=== PATIENT | female | born 1990 | race Caucasian/White ===

== ENCOUNTER → 2023-12-31 13:13 | Outpatient (REF) | payer BC, SELFPAY | LOC: HWRAD 13:13 | PROVIDERS: ATTENDING PHYSICIAN Nurse Practitioner Adult Health | DX: R79.89 Other specified abnormal findings of blood chemistry (principal) | CPT/HCPCS: 76700 ==

== ENCOUNTER → 2024-10-27 07:15 | Outpatient (REF) | payer BC, SELFPAY | LOC: PNTC 07:15 | PROVIDERS: ATTENDING PHYSICIAN Obstetrics & Gynecology | DX: Z36.0 Encounter for antenatal screening for chromosomal anomalies (principal); Z36.82 Encounter for antenatal screening for nuchal translucency | CPT/HCPCS: 76801; 76813 ==

== ENCOUNTER → 2024-11-22 08:18 | Outpatient (REF) | payer BC, SELFPAY | LOC: PNTC 08:18 | PROVIDERS: ATTENDING PHYSICIAN Obstetrics & Gynecology | DX: O09.519 Supervision of elderly primigravida, unspecified trimester (principal) | CPT/HCPCS: 76805 ==

== ENCOUNTER → 2024-12-21 08:13 | Outpatient (REF) | payer BC, SELFPAY | LOC: PNTC 08:13 | PROVIDERS: ATTENDING PHYSICIAN Obstetrics & Gynecology | DX: O09.529 Supervision of elderly multigravida, unspecified trimester (principal); O09.819 Supervision of pregnancy resulting from assisted reproductive technology, unspecified trimester; O99.210 Obesity complicating pregnancy, unspecified trimester | CPT/HCPCS: 76811; 76817 ==

== ENCOUNTER 2025-01-12 14:07 | Observation (INO) | payer BC, SELFPAY ==
[2025-01-12 14:50] VITALS: BP 109/68; BMI 35.8
[2025-01-12 14:56] LABS: Hematocrit 37.5 % (37.0-47.0); Hemoglobin 12.8 g/dL (12.0-16.0); Mean Corp Hgb Conc. 34.1 g/dL (33.0-37.0); Mean Corpuscular Hgb 30.3 pg (27.0-31.0); Mean Corpuscular Volume 88.7 fL (81.0-99.0); Mean Platelet Volume 9.5 fL (7.4-10.4); Platelet Count 275 10^3/uL (130-400); Red Blood Cell Count 4.23 10^6/uL (4.20-5.40); Red Cell Dist. Width 12.4 % (11.5-14.5); White Blood Cell Count 12.7 10^3/uL (4.8-10.8)
[2025-01-12 15:01] VITALS: BP 109/68
[2025-01-12 15:02] LABS: INR 0.96; PT 13.3 Sec (11.4-14.6)
[2025-01-12 15:03] LABS: APTT 25.1 Sec (23.4-35.0); Fibrinogen 566 MG/DL (199-459)
== END 2025-01-13 14:27 | disposition home or self-care (01) ==
LOC: LDRP 14:07
PROVIDERS: ADMITTING PHYSICIAN Student in an Organized Health Care Education/Training Program
DX: O9A.212 Injury, poisoning and certain other consequences of external causes complicating pregnancy, second trimester (principal); S39.81XA Other specified injuries of abdomen, initial encounter; W01.0XXA Fall on same level from slipping, tripping and stumbling without subsequent striking against object, initial encounter; O32.1XX0 Maternal care for breech presentation, not applicable or unspecified; Z3A.23 23 weeks gestation of pregnancy; O26.612 Liver and biliary tract disorders in pregnancy, second trimester; K76.0 Fatty (change of) liver, not elsewhere classified; O09.512 Supervision of elderly primigravida, second trimester; O99.212 Obesity complicating pregnancy, second trimester
CPT/HCPCS: 59025; 76815; 85027; 85384; 85460; 85610; 85730; 86850; 86900; 86901; G0378

== ENCOUNTER → 2025-02-01 15:56 | Outpatient (REF) | payer BC, SELFPAY | LOC: PNTC 15:56 | PROVIDERS: ATTENDING PHYSICIAN Obstetrics & Gynecology | DX: O09.512 Supervision of elderly primigravida, second trimester (principal); O09.812 Supervision of pregnancy resulting from assisted reproductive technology, second trimester; O26.612 Liver and biliary tract disorders in pregnancy, second trimester; O99.213 Obesity complicating pregnancy, third trimester | CPT/HCPCS: 76816 ==

== ENCOUNTER → 2025-03-01 15:57 | Outpatient (REF) | payer BC, SELFPAY | LOC: PNTC 15:57 | PROVIDERS: ATTENDING PHYSICIAN Obstetrics & Gynecology | DX: O09.513 Supervision of elderly primigravida, third trimester (principal); O09.813 Supervision of pregnancy resulting from assisted reproductive technology, third trimester; O26.613 Liver and biliary tract disorders in pregnancy, third trimester; O99.213 Obesity complicating pregnancy, third trimester | CPT/HCPCS: 76816 ==

== ENCOUNTER → 2025-03-28 16:11 | Outpatient (REF) | payer BC, SELFPAY | LOC: PNTC 16:11 | PROVIDERS: ATTENDING PHYSICIAN Obstetrics & Gynecology | DX: O09.513 Supervision of elderly primigravida, third trimester (principal); O09.813 Supervision of pregnancy resulting from assisted reproductive technology, third trimester; O26.613 Liver and biliary tract disorders in pregnancy, third trimester; O99.213 Obesity complicating pregnancy, third trimester | CPT/HCPCS: 59025; 76816 ==

== ENCOUNTER → 2025-04-04 16:00 | Outpatient (REF) | payer BC, SELFPAY | LOC: PNTC 16:00 | PROVIDERS: ATTENDING PHYSICIAN Obstetrics & Gynecology | DX: O09.513 Supervision of elderly primigravida, third trimester (principal); O09.813 Supervision of pregnancy resulting from assisted reproductive technology, third trimester; O26.613 Liver and biliary tract disorders in pregnancy, third trimester; O99.213 Obesity complicating pregnancy, third trimester | CPT/HCPCS: 59025; 76815 ==

== ENCOUNTER 2025-04-09 05:56 | Inpatient (IN) | payer BC, SELFPAY ==
[2025-04-09 02:11] VITALS: BP 124/90
[2025-04-09 02:28] VITALS: BMI 38.7
--- NOTE | 2025-04-09 02:30 | EDRN ---
Pt having upper abdominal pain into her back, nausea and vomiting. Pt is 36 weeks G1A0P0. Symptoms started around [id number], pt was unable to get to sleep. Pt ate chicken tenders and crab fries for dinner. No hx gallbladder problems.
No surgeries. No fever/chills/cough, urinary symptoms, diarrhea/constipation. Pain also goes through chest. Pain constant. Pt took 1000mg tylenol around 0100.
[2025-04-09] MEDS: BENADRYL 12.5 MG IV (02:43)
[2025-04-09] MEDS: REGLAN 10 MG IV (02:47)
[2025-04-09 02:50] LABS: Hematocrit 36.4 % (37.0-47.0); Hemoglobin 12.7 g/dL (12.0-16.0); Mean Corp Hgb Conc. 34.9 g/dL (33.0-37.0); Mean Corpuscular Volume 86.1 fL (81.0-99.0); Nucleated Red Blood Cells % 0 %; Platelet Count 227 10^3/uL (130-400); Red Cell Dist. Width 12.6 % (11.5-14.5)
--- NOTE | 2025-04-09 02:58 | EDRN ---
Dr Batista offered pt morphine for pain which she declined. Pt aware waiting for US and if she changes her mind about pain medication to let staff know. Pt restless on stretcher, unable to find comfortable position.
[2025-04-09 03:05] LABS: ALT (SGPT) 14 U/L (0-35); AST (SGOT) 23 U/L (14-36); Albumin 3.6 g/dl (3.5-5.0); Alkaline Phosphatase 161 U/L (38-126); Blood Urea Nitrogen 6 mg/dl (7-17); Calcium 9.3 mg/dl (8.4-10.2); Carbon Dioxide 22 mmol/L (22-30); Chloride 111 mmol/L (98-107); Estimated Creatinine Clearance > 125 ml/min; Glucose 98 mg/dl (70-99); Lipase 264 U/L (23-300); Potassium 4.4 mmol/L (3.5-5.1); Sodium 137 mmol/L (135-145); Total Protein 6.4 g/dl (6.3-8.2); eGFR > 60.00
[2025-04-09 03:16] LABS: Troponin I < 0.012 ng/ml
[2025-04-09 04:31] VITALS: BP 123/80
--- NOTE | 2025-04-09 04:45 | ED.GENMED ---
History of Present Illness
General
Chief Complaint: Chest Pain
Source: patient
Time Seen by Provider: 04/09/25 02:41
Nursing documentation reviewed up to this point in time: agreed with
History of Present Illness
History of Present Illness:
Note:
CHIEF COMPLAINT(S)
Abdominal pain and discomfort primarily around the back.
HISTORY OF PRESENT ILLNESS
The patient is a 34-year-old female who presented with complaints of abdominal and back discomfort. The patient described symptoms as being around the back area and not overtly colicky or resembling contractions, which she equates with severe pain.
This discomfort has prompted her to seek medical attention. She reports a recent episode during which Tylenol (acetaminophen) was taken, 1000 mg at 1:00 AM, which currently precludes the administration of additional acetaminophen at this time. While
she has been suggested morphine as a pain management option, the patient expressed reluctance and declined the offer. She appears concerned about the safety of medications during . The plan includes proceeding with an ultrasound to evaluate
the gallbladder as a potential source of her discomfort.
ADDITIONAL HISTORY OBTAINED FROM SOURCES OTHER THAN THE PATIENT
No additional history from other sources was recorded.
PHYSICAL EXAM
General: Alert, moderate acute distress
Skin: Warm, dry.
Head: Normocephalic, atraumatic.
Neck: Supple, trachea midline.
Eye, Ears, Nose, and Throat: Oral mucosa moist.
Cardiovascular: Normal peripheral perfusion, No edema.
Respiratory: Respirations are non-labored.
Gastrointestinal: Abdomen nondistended. Right upper quadrant abdominal pain
Back: Normal range of motion, Normal alignment.
Musculoskeletal: Normal range of motion, normal strength.
Neurological: Alert and oriented to person, place, time, and situation, No focal neurological deficit observed.
Psychiatric: Cooperative, appropriate mood & affect.
PLAN
1. Conduct an abdominal ultrasound to evaluate the gallbladder.
2. Continue observation and manage pain with caution due to the patient�s ; revisit pain management options if necessary.
3. Avoid NSAIDs due to current conditions and recent acetaminophen use.
4. Encourage the patient to report any significant changes in symptoms, particularly those involving increased pain or new symptoms.
DIFFERENTIAL DIAGNOSIS
The Differential Diagnosis includes, in no particular order and is not limited to:
1. Cholecystitis
2. Gallstones
3. Biliary colic
4. Pancreatitis
5. Urinary tract infection
6. Pyelonephritis
7. Renal colic
8. Peptic ulcer disease
9. Musculoskeletal pain
10. labor or false labor (considered due to )
CARE-UPDATE
04/09/25 - 04:59
The patient continues to experience severe right lower quadrant abdominal pain and prefers to avoid narcotic pain medication. Due to persistent symptoms, the decision has been made to admit the patient to the hospital. Dr. Berrios has concurred
with the plan and will have the patient under her care.
Disposition:
SUMMARY OF ENCOUNTER
The patient, a 34-year-old female who is 36 weeks , presented with right upper quadrant abdominal pain. Due to the persistent nature of her symptoms, she has been diagnosed with cholelithiasis and biliary colic. Given her condition and
, the decision was made to admit her for further evaluation and management.
DISPOSITION
Admit
MANAGEMENT OF THE PATIENTS CARE WAS DISCUSSED WITH
The patients care was discussed with Dr. Berrios, who will take over her management upon admission.
PLAN
The patient is admitted to Dr. Castro service for further monitoring and testing, likely to include imaging and potential consultations with gastroenterology to better define the management plan.
DIAGNOSIS
- Cholelithiasis (ICD-10: K80.20)
- Biliary Colic (ICD-10: K80.40)
Phy Exam
Physical Exam
Physical Exam:
Right upper quadrant abdominal pain consistent with Solorio sign. No McBurney's point tenderness. Rapid uterus.
Scores
Heart Score for Chest Pain Patients
STEMI patient?: No
History: Slightly or Non-Suspicious
ECG: Normal
Age: </= 45 years
Risk Factors: No Risk Factors
Troponin: </= Normal Limit
Heart Score for Chest Pain Patients: 0
Heart Score Risk: 2.5% MACE over next 6 weeks
Course
Orders/Labs/Results
Orders:
Orders
04/09/25 02:15
EKG [Electrocardiogram (*1)] Urgent
Reason for Study: Chest Pain
EKG- Treatment ONCE
04/09/25 02:26
Cardiac Monitoring- Treatment ONCE
IV Insert/Care/Rem.- Treatment PRN
O2 Therapy [RESP] Urgent
Titrate/Wean O2 to maintain O2 sat greater than (%): 90
Special Instructions: Maintain sats >/=90%
Pulse Ox/spot Check [RESP] Urgent
Quantity: 1
Special Instructions: ON ROOM AIR
04/09/25 02:38
Complete Blood Count/With Diff Urgent
Comprehensive Metabolic Panel Urgent
Lipase Urgent
Troponin I Urgent
04/09/25 02:41
Diphenhydramine [Benadryl] 50 mg .ROUTE .STK-MED ONE
Metoclopramide [Reglan] 10 mg .ROUTE .STK-MED ONE
04/09/25 02:42
Diphenhydramine [Benadryl] 12.5 mg IV NOW STA
04/09/25 02:46
Metoclopramide [Reglan] 10 mg IV NOW STA
04/09/25 02:51
US Abdomen Complete/Upper Urgent
Comment:
Reason For Exam: ruq abd pain
04/09/25 05:24
Admit/Transfer Patient As Directed
Co-Sign Provider:
Level of Care: Inpatient admission
Assign to:: [facility]
Physician / Group: Roxanne Montoya
Diagnosis: Cholelithiasis
Reason for Hospitalization: IV medications? possible OR,
Expected length of stay greater than two midnights?: Yes
ELOS- Estimated Length of Stay in days: 2
I certify the patient meets the requirements for IP care: Yes
04/09/25 05:30
PRN Pain Medication Management As Directed
May give lesser potent ordered pain med per pt: Yes
preference::
Protocol:: Medication orders for pain may be administered in a
manner that supports deferring to patient preference
when the pt is:
- Requesting an ordered lesser potent pain medication.
Least to most potent pain medications are defined
as: acetaminophen < NSAID < tramadol < opioids
(morphine, oxycodone, hydromorphone).
- Requesting a lesser dose of the same medication IF
ORDERED.
- Requesting a less intrusive route of administration
if both routes are prescribed by the provider (PO <
IV).
04/09/25 05:32
Code Status As Directed
Resuscitation Status: Full Code
04/09/25 06:04
Acetaminophen [Tylenol] 650 mg PO Q6HPRN PRN
Abnormal Lab Results
04/09/25
02:38
Hct 36.4 L %
(37.0-47.0)
Abs Immat Gran (auto) 0.1 H 10^3/uL
(0-0.05)
Absolute Monos (auto) 0.9 H 10^3/uL
(0.1-0.6)
Immature Gran % 1.0 H %
(0-0.5)
Chloride 111 H mmol/L
(98-107)
BUN 6 L mg/dl
(7-17)
Alkaline Phosphatase 161 H U/L
(38-126)
04/09/25 02:38
04/09/25 02:38
Vital Signs
Initial and Last Documented VS:
Initial Vital Signs
Pulse Resp BP Pulse Ox
96 22 124/90 98
04/09/25 02:11 04/09/25 02:11 04/09/25 02:11 04/09/25 02:11
Last Documented Vital Signs
Temp Pulse Resp BP Pulse Ox
99.1 F 84 14 122/72 100
04/09/25 04:31 04/09/25 06:30 04/09/25 06:30 04/09/25 06:30 04/09/25 04:46
*Pulse Oximetry
SaO2: 100
Oxygen Mode of Delivery: Room air
Patient hypoxic: not evaluated
*Critical Care Note
Total Time (30-74mins, 75-104mins- exclusive of procedures): Not Applicable
Update Note
Update Note:
Preliminary Radiology Report
[facility], [facility] - Phone
[facility]
NAME: YASMIN MONTOYA
DATE OF EXAM: 04/09/2025
Patient No: [id number]
Physician: TYLER^Vicky
Date of : 1990
Past Medical History (entered by Technologist):
Reason For Exam (entered by Technologist): RUQ pain
Other Notes (entered by Technologist): 2 small mobile GB stones, fatty liver, nl CBD, mild left hydronephrosis. The patient is 36 weeks .
Additional Information (per [facility]): Right upper quadrant pain. 36 weeks
Ultrasound abdomen complete
IMPRESSION:
Cholelithiasis without secondary findings to suggest cholecystitis
Few small gallstones in gallbladder
No gallbladder wall thickening or pericholecystic fluid
Negative sonographic Solorio's sign per report
No bile duct dilation
Pancreas obscured by bowel gas
Liver appears normal
Right kidney is unremarkable
Trace left-sided hydronephrosis
Spleen appears normal
No appreciable free fluid
Report faxed directly to ER at 4:39 AM ET
ED Attending Note
-
Portions of this chart may have been created with voice recognition software.� Occasional wrong word or��sound alike� substitutions may have occurred due to the inherent limitations of voice recognition software.
Discharge Plan
Departure
Patient Disposition: Admit
Date of Disposition: 04/09/25
Time of Disposition: 05:00
Admit to: Med/Surg
Presentation/result/management discussed w/ accepting MD/DO: Dr. Montoya
Discharge Problem:
Biliary colic, 36 weeks gestation of
Interventions
Interventions:
*Risk Screen - Suicide Last Done: 04/09/25 02:11
*General Assessment Last Done: 04/09/25 02:11
*Neglect/Abuse Screening Last Done: 04/09/25 02:11
*ED- Fall Risk Assessment Last Done: 04/09/25 02:57
ED- Cardiac Assessment Last Done: 04/09/25 02:57
--- NOTE | 2025-04-09 05:40 | HPS.HSE ---
Family Physician
-
Family Physician: Roxanne Acevedo
Chief Complaint
-
'Abdomen pain'
History of Present Illness
34 year old 36 weeks patient presents to the ER with the complain of RUQ abdomen pain. States sharp, dull pain started around 11 PM, radiated towards her right upper chest, breast, associated with nausea and vomiting. Pain is constant.
States she has poor appetite now, LBM around 1 AM small amount which was normal, no blood noted, + belching, voiding without difficultly as well. Denies any chest pain shortness of breath. Pain at present is 10/10 but hesitant to take any
medications. Advised to take Tylenol PO and that it is safe to take, patient refused Morphine at present and is willing to take Tylenol PO.
G1A0P0, states 36 weeks , movement is normal, she does not have any contractions or cramps at this moment, no bloody discharge.
US abdomen: Cholelithiasis without secondary findings to suggest cholecystitis.
Medical History
Past Medical History
Past Medical History: Reports Other (fatty liver)
Past Surgical History: Reports Tonsilectomy and Other (cyst removed above abdomen )
Social History
Tobacco: Non-smoker
Alcohol: None
Drug: None
Living: With Family
Family History
Family History: Not pertinent
Allergies / Home Medications
Allergies reflects when Allergies were last updated in [employer].
Home Medications with original date entered in [employer]
Allergy/Medication List:
Allergies
Allergy/AdvReac Type Severity Reaction Status Date / Time
No Known Allergies Allergy Verified 04/09/25 02:29
Home Medications
calcium carbonate 500 mg PO DAILY 01/12/25
ondansetron HCl 4 mg tablet 4 mg PO Q6H PRN nausea 01/12/25
1 tab PO DAILY 04/09/25
Review of Systems
-
History Source: Patient
A 12 point ROS was completed and negative except as noted: Yes
Constitutional: Reports No Symptoms
EENT: Reports No Symptoms
Respiratory: Reports No Symptoms
Cardiac: Reports No Symptoms
Abdomen/GI: Reports Abdominal Pain
: Reports No Symptoms
Musculoskeletal: Reports No Symptoms
Skin: Reports No Symptoms
Neurological: Reports No Symptoms
Endocrine: Reports No Symptoms
Hematologic/Lymphatic: Reports No Symptoms
Psych: Reports No Symptoms
Physical Exam
Vital Signs
Vital Signs
Temp Pulse Resp BP Pulse Ox
99.1 F 87 21 123/80 100
04/09/25 04:31 04/09/25 04:31 04/09/25 04:31 04/09/25 04:31 04/09/25 04:46
Physical Exam
General: Well Developed, Well Nourished and No Apparent Distress
HEENT: NormoCephalic, Moist mucous membranes and Atraumatic
Respiratory: Clear and Non Labored Respirations
Cardiac: S1/S2 and Regular Rhythm
Breast: Deferred by me
GI: Soft, Non Distended and Normal Bowel Sounds
Rectal: Deferred by Provider
Genito-urinary: Deferred by me
Musculoskeletal: No Clubbing, No Cyanosis and No Edema
Skin: Warm and Dry
Neuro: Awake, AO x 3 and Nonfocal/grossly intact
Hematologic/Lymphatic: No Lymphadenopathy
Psych: Calm and Intact Judgment/Insight
Laboratory Results
-
04/09/25 02:38
04/09/25 02:38
Laboratory Results
Total Bilirubin 0.4 mg/dl (0.2-1.3) 04/09/25 02:38
AST 23 U/L (14-36) 04/09/25 02:38
ALT 14 U/L (0-35) 04/09/25 02:38
Alkaline Phosphatase 161 U/L (38-126) H 04/09/25 02:38
Troponin I < 0.012 ng/ml 04/09/25 02:38
Lipase 264 U/L (23-300) 04/09/25 02:38
Data Reviewed
-
Ultrasound: Report Reviewed by me
Lab Data: Labs Reviewed by me
Impression/Plan
-
34 year old patient with abdomen pain
G1A0P0
# Abdomen pain likely due to Cholelithiasis
US abdomen: US abdomen: Cholelithiasis without secondary findings to suggest cholecystitis
-NPO
- Tylenol prn for pain
- continue Reglan for nausea.
- Consult GI
-Admit to Dr. Montoya
-Admit to [facility]
SCD's
Full code
[2025-04-09 06:30] VITALS: BP 122/72
[2025-04-09] MEDS: TYLENOL 650 MG PO (06:30)
--- NOTE | 2025-04-09 06:34 | EDRN ---
Call [facility] - Dr Montoya said all staff are in rooms, will return call for report. Pt to go to 210
--- NOTE | 2025-04-09 09:45 | CON.GI ---
Consultation
-
Date/Time Consultation Performed: 04/09/25
Performing Provider: Chilo Ching MD
Reason for Consultation: RUQ pain
Medical History
Chief Complaint / HPI
Chief Complaint: abdominal pain
History of Present Illness:
The patient is a 34-year-old female with past medical history as noted who presents with abdominal pain. She describes significant abdominal pain, the right upper quadrant, rating to the back, associated nausea and vomiting starting yesterday. She
had an episode similar to this earlier in her that was not as severe and resolved spontaneously. She did not had any further vomiting, though still having persistent right upper quadrant pain, describes 9 out of 10. She denies any fevers
or chills. She states that she has had fatty liver diagnosed in the past, the LFTs have been essentially normal throughout her by report. She denies any significant NSAID use.
Past Medical History
Past Medical History: Other (Fatty liver)
Past Surgical History: Tonsilectomy
Social History
Tobacco: Non-Smoker
Alcohol: None
Family History
Family History: Reviewed & Not Pertinent
Allergies / Home Medications
Allergy/AdvReac Type Severity Reaction Status Date / Time
No Known Allergies Allergy Verified 04/09/25 02:29
�Medication �Instructions �Recorded
calcium carbonate 500 mg PO DAILY 01/12/25
ondansetron HCl 4 mg tablet 4 mg PO Q6H PRN nausea 01/12/25
1 tab PO DAILY 04/09/25
Review of Systems
-
All other systems: A 12 pt ROS was Negative except as stated above in HPI
Vital Signs
Temp Pulse Resp BP Pulse Ox
99.1 F 84 14 122/72 100
04/09/25 04:31 04/09/25 06:30 04/09/25 06:30 04/09/25 06:30 04/09/25 04:46
Physical Exam
Exam
General: NAD
HEENT: MMM, anicteric, no lymphadenopathy
Heart: Regular, no murmurs
Lungs: CTA bilaterally
Abdomen: Gravid, normal bowel sounds, soft, mild right upper quadrant tenderness, no rebound or guarding, no masses, bruits or ascites
Extremeties: no edema
Skin: no rashes
Results
WBC 10.8 10^3/uL (4.8-10.8) 04/09/25 02:38
Hgb 12.7 g/dL (12.0-16.0) 04/09/25 02:38
Hct 36.4 % (37.0-47.0) L 04/09/25 02:38
MCV 86.1 fL (81.0-99.0) 04/09/25 02:38
Plt Count 227 10^3/uL (130-400) 04/09/25 02:38
Absolute Neuts (auto) 6.5 10^3/uL (1.4-6.5) 04/09/25 02:38
Sodium 137 mmol/L (135-145) 04/09/25 02:38
Potassium 4.4 mmol/L (3.5-5.1) 04/09/25 02:38
Chloride 111 mmol/L (98-107) H 04/09/25 02:38
Carbon Dioxide 22 mmol/L (22-30) 04/09/25 02:38
BUN 6 mg/dl (7-17) L 04/09/25 02:38
Creatinine 0.6 mg/dL (0.6-1.0) 04/09/25 02:38
Calcium 9.3 mg/dl (8.4-10.2) 04/09/25 02:38
Total Bilirubin 0.4 mg/dl (0.2-1.3) 04/09/25 02:38
AST 23 U/L (14-36) 04/09/25 02:38
ALT 14 U/L (0-35) 04/09/25 02:38
Alkaline Phosphatase 161 U/L (38-126) H 04/09/25 02:38
Lipase 264 U/L (23-300) 04/09/25 02:38
Diagnostic Image Results:
US:
IMPRESSION: Gallstones. New. No secondary findings to suggest acute cholecystitis.
Hepatic fatty infiltration. Stable
Nonvisualization of the pancreas.
Mild left hydronephrosis. New
Prior GI Procedures:
EGD:
Colonoscopy:
Assessment / Plan
-
1. Right upper quadrant pain: Consistent with biliary colic, with gallstones noted on ultrasound, though no significant leukocytosis or other ultrasound findings to suggest cholecystitis currently. CBD was normal, LFTs normal except for minimally
elevated alkaline phosphatase, making CBD stone very unlikely. At this point unfortunately not much more to add from a GI standpoint. Would consult surgery as could be indicated if her symptoms are not improving or develops signs of cholecystitis.
We will sign off for now, please call back with any further questions.
-
-
Thank you for consultation and allowing me to participate in the patient's care. Please call the exchange underwriting consultant GI physician during the after hours with any questions or concerns.
[2025-04-09] MEDS: TYLENOL 1000 MG PO (11:02)
--- NOTE | 2025-04-09 11:18 | CON.GS ---
Consultation
-
Date/Time Consultation Performed: 04/09/25 1030
Medical History
-
Chief Complaint: RUQ pain
History of Present Illness:
Ms Cruz is a 34 yo female who is 36 weeks presenting with RUQ pain radiating into her back which began last night several hours after dinner just before she went to bed accompanied by nausea and vomiting. She tried PO tylenol without much
benefit. She denies fevers or chills. She notes that nausea has currently resolved but she has no appetite. She does note persistent RUQ discomfort with mild tenderness on exam. She denies prior episodes in the past.
Past Medical History
Past Medical History: Other (fatty liver dz)
Past Surgical History: Tonsilectomy and Other (abdominal cyst)
Social History
Tobacco: Non-Smoker
Alcohol: None
Living: With Family
Family History
Family History: Reviewed & Not Pertinent
Allergies / Home Medications
Allergy/AdvReac Type Severity Reaction Status Date / Time
No Known Allergies Allergy Verified 04/09/25 02:29
�Medication �Instructions �Recorded �Confirmed �Type
calcium carbonate 500 mg PO DAILY 01/12/25 04/09/25 History
ondansetron HCl 4 mg tablet 4 mg PO Q6H PRN nausea 01/12/25 04/09/25 History
1 tab PO DAILY 04/09/25 04/09/25 History
Review of Systems
-
History Source: Patient
All other systems: Negative unless noted
A 10 point review of systems was completed, and was negative except as per HPI.
Physical Exam
Vital Signs
Temp Pulse Resp BP Pulse Ox
99.1 F 84 14 122/72 100
04/09/25 04:31 04/09/25 06:30 04/09/25 06:30 04/09/25 06:30 04/09/25 04:46
04/08/25 04/09/25 04/10/25
06:59 06:59 06:59
Actual Weight 99.1 kg
Body Mass Index (BMI) 38.7
Lab Results
04/09/25 02:38
04/09/25 02:38
WBC 10.8 10^3/uL (4.8-10.8) 04/09/25 02:38
Hgb 12.7 g/dL (12.0-16.0) 04/09/25 02:38
Hct 36.4 % (37.0-47.0) L 04/09/25 02:38
Plt Count 227 10^3/uL (130-400) 04/09/25 02:38
Abs Immat Gran (auto) 0.1 10^3/uL (0-0.05) H 04/09/25 02:38
Neutrophils % 60.2 % (42.2-75.2) 04/09/25 02:38
Physical Exam
General: Well Developed and Well Nourished
HEENT: Moist Mucous Membranes
Respiratory: Non Labored Respirations
GI: Soft, Tender (RUQ) and Other (gravid abdomen)
Skin: Warm and Dry
Neuro: Awake, Alert and AO x 3
Psych: Calm
Data Reviewed
-
Ultrasound: Image Personally Visualized and interpreted, Report Reviewed by me, Discussed with Physician and Discussed with Patient
Labs: Labs Reviewed by me, Discussed with Physician and Discussed with Patient
Old Records: Reviewed
Assessment / Plan
-
34 yo female who is 36 weeks presenting with RUQ pain radiating into her back which began last night with n/v. Afebrile. No leukocytosis. Gallstones noted on US without pericholecystic edema or gallbladder wall thickening. RUQ discomfort
and tenderness does persist however. Suspect biliary colic although possibly early acute cholecystitis given persistent symptoms despite being NPO since last noc.
Plan:
Would start unasyn empirically and follow pain pattern closely
Ok for clear liquids tonight
analgesics/antiemetics as per obstetrics team
Discussed possibility for need for surgery for cholecystectomy if symtpoms persist
[2025-04-09] MEDS: UNASYN IV ×3 (12:17→23:29)
[2025-04-09 12:39] VITALS: BMI 38.6
--- NOTE | 2025-04-09 14:53 | W.PN.OBG.DWH ---
Today's Communication / Plan
-
clear diet
PO/IV pain mgmt as needed
NST Q 8h fht Q 4h
Repeat labs in am
GI signed off
Gen surg will follow tm
Assessment/Plan
-
36W 2D with gallstones and right upper quadrant pain. No evidence of acute cholelithiasis.
-Due to being 36 weeks gestation with abdominal pain, recommendation is admission to labor and delivery unit for monitoring purposes.
-Pain Management offered with Tylenol as well as narcotic medication if needed. She was initially declining narcotic pain medication but after discussion patient agreeable to taking if she has severe pain.
-NST Q8hr fht Q4hr
-Repeat labs in am
-Clears per gen surg, NPO after Midnight in case intervention is needed-Gen surg will manage diet.
Appreciate GI and surgery consults. Given gestational age, would prefer avoiding surgery until after delivery. If pain is severe or surgery felt indicated, may consider for earlier delivery if indicated, preferably after 37 weeks which is
full-term. Hopefully with IV antibiotics and modified diet, symptoms can be controlled and gallbladder issues addressed after delivery. If symptoms are manageable, would prefer her to go into labor on her own.
Reviewed case with Dr. Ching (GI), Dr. Poole (CR covering gen surg) and LESLIE Salinas-gen surg.
Discussed above with Marixa. Her mother and father were also present. GBS culture was collected today with patient permission.
Time spent 40 min
Subjective Data
-
34-year-old G1, P0 female with EDC 05/05/2025 presented at 36 weeks 2 days gestation to the emergency room with complaint of right upper quadrant abdominal pain. Symptoms started approximately 11 PM last night and began as a intermittently sharp pain
that radiated toward upper right chest and breast. It was associated with nausea and vomiting. The pain was relatively constant. She has decreased appetite. She denied any fever, chills, diarrhea, constipation, changes in bowel habits, dysuria,
vaginal bleeding. Baby has been actively moving. Pain was described as 10/10 in the emergency room. She was hesitant to take any narcotic pain medicine but took some Tylenol with minimal relief.
course significant for history steaotic liver disease diagnosed during IVF workup. Elevated BMI, AMA, history of IVF - echo was normal.
labs: A positive, antibody screen negative, rubella-immune, HBsAg-negative, GC C/CT-both negative, HIV-NR, RPR-NR, HCV antibody-negative, AFP negative, NIPT negative, early 1 hour GTT 128, standard 1 hour GTT timing 152, 3-hour GTT normal.
GBS has not yet been performed.
PMH: PCOS, insulin resistance, steatotic liver disease, infertility history, elevated BMI, advanced maternal age.
PSH: Excision of lipoma, IVF , tonsillectomy
NKDA
Meds: Low-dose aspirin, Zofran 4 mg p.o. as needed every 8 hours
Social history: Negative tobacco, alcohol, illicit drug use
Family history: Noncontributory
Review of systems: Does not add
Objective Data
-
Laboratory Results
04/09/25 02:38
04/09/25 02:38
Vital Signs
Temp Pulse Resp BP Pulse Ox
99.1 F 84 14 122/72 100
04/09/25 04:31 04/09/25 06:30 04/09/25 06:30 04/09/25 06:30 04/09/25 04:46
Physical exam:
VSS, afebrile, Tmax 99
General appearance: Pleasant appearing female, no acute distress, converses easily without apparent distress. Mother and father in room for part of our discussion. They left for examination.
Heart: Regular
Lungs: Clear
Abdomen: Soft, nondistended, mild sensitivity with palpation right upper quadrant, no guarding, rebound, rigidity. Gravid fundus, nontender.
Extremities: No calf pain, no significant edema.
Labs:
WBC 10.8
H/H12.7/36.4
Platelet 227
Creatinine 0.6
BUN 6
AST 23
ALT 14
Abdominal ultrasound: Liver normal size, increased echogenicity. No focal hepatic lesion or intrahepatic biliary dilation. Gallbladder physiologically distended with fluid with 2 mobile small gallstones. Common duct normal, measuring 5 mm. The
appendix is not visualized due to spleen normal in size and no focal abnormality. Pancreas not visualized due to overlying bowel gas. Spleen is normal in size and no focal abnormality. Kidneys demonstrate mild left hydronephrosis. No free fluid
in the abdomen. Proximal IVC and abdominal aorta are unremarkable. No secondary findings to suggest acute cholecystitis. Hepatic fatty infiltration-stable. No free fluid in the abdomen. Proximal IVC and abdominal aorta are unremarkable.
Last ultrasound 04/04/2025: NADER is normal 15.3
Growth ultrasound 03/28/2025: Vertex EFW 8 9%. No anatomic abnormalities, AFV normal.
Category I tracing /reactive NST
--- NOTE | 2025-04-09 17:03 | W.PN.UPDATE ---
Update Note
Progress Note Update
Note written in [facility] also
--- NOTE | 2025-04-09 17:03 | W.PN.OBG.DWH ---
Today's Communication / Plan
-
Plan:
Admit to OB service for monitoring given she is 36 weeks. NST every 8 hours, FHT every 4.
GI consult appreciated. GI signed off.
General Surgery consult appreciated. They recommended IV antibiotics and n.p.o. after midnight. Clear liquids until that time. Diet will be managed by general surgery.
From an OB standpoint, would prefer no surgical intervention unless absolutely needed given she is a week from full-term. If intervention were needed prior to that time, steroids would be indicated. Would hope since there is no current evidence of
cholecystitis that symptoms can be controlled for further management after delivery. If patient's symptoms or clinical situation warranted sooner surgical intervention, induction could be considered at 37 weeks which is full-term. We would prefer
if symptoms were manageable to allow spontaneous delivery and induction after 39 weeks if possible.
Group B strep culture was collected today.
Case was discussed with SHANNON Pickering as well as Dr. Poole and LESLIE Zuleta.
Time total 60 minutes including [id number] time with the patient, consulting, documentation on day of visit.
Assessment/Plan
-
Impression:
Intrauterine 36-week 2-day
Right upper quadrant abdominal pain
Gallstones-no evidence of acute cholecystitis.
Advanced maternal age
Elevated BMI
IVF
Plan:
Admit to OB service for monitoring given she is 36 weeks. NST every 8 hours, FHT every 4.
GI consult appreciated. GI signed off.
General Surgery consult appreciated. They recommended IV antibiotics and n.p.o. after midnight. Clear liquids until that time. Diet will be managed by general surgery.
From an OB standpoint, would prefer no surgical intervention unless absolutely needed given she is a week from full-term. If intervention were needed prior to that time, steroids would be indicated. Would hope since there is no current evidence of
cholecystitis that symptoms can be controlled for further management after delivery. If patient's symptoms or clinical situation warranted sooner surgical intervention, induction could be considered at 37 weeks which is full-term. We would prefer
if symptoms were manageable to allow spontaneous delivery and induction after 39 weeks if possible.
Group B strep culture was collected today.
Case was discussed with SHANNON Pickering as well as Dr. Poole and LESLIE Zuleta.
Time total 60 minutes including [id number]-my-[id number] time with the patient, consulting, documentation on day of visit.
Subjective Data
-
34-year-old G1, P0 female with EDC 05/05/2025 presents at 36-week 2-day gestation after presenting to the emergency room with complaint of sudden onset of right upper quadrant abdominal pain. Pain initially started as a dull achy pain but became more
sharp and constant. It was associated with nausea and vomiting. Pain was located in the high upper quadrant above the uterus. Patient has no concerns about the baby. Is experiencing active movement. Denies contractions and denies vaginal
bleeding. She denies fever, chills, diarrhea, constipation, dysuria, flank pain.
course: AMA, elevated BMI, IVF (normal echo), steatotic liver disease that was diagnosed during IVF evaluation.
labs: A+, antibody screen negative, rubella immune, HBsAg-negative, RPR-NR, HIV-NR, GC/CT-both negative, Pap negative cotest, HCV antibody negative, AFP negative, NIPT negative, early 1 hour 128, traditional 1 hour GTT 152, 3-hour GTT
normal.
PMH: Insulin resistance, PCOS, infertility, steatotic liver disease
PSH: Excision of lipoma, IVF, tonsillectomy
NKDA
Meds low-dose aspirin, Zofran as needed
Social history: , negative tobacco, negative alcohol, negative recreational drug use
Family history: Noncontributory
Review of systems: Stated above, does not add
Recent growth ultrasound 03/28/2025: EFW 2980 g EFW 89 percentile for this gestational age, head to body ratio normal. No anatomic abnormalities noted. Amniotic fluid volume normal. NADER 04/04/2025 normal.
Objective Data
-
Laboratory Results
04/09/25 02:38
04/09/25 02:38
Vital Signs
Temp Pulse Resp BP Pulse Ox
99.1 F 84 14 122/72 100
04/09/25 04:31 04/09/25 06:30 04/09/25 06:30 04/09/25 06:30 04/09/25 04:46
PE: VSS afebrile Tmax 99
General Appearance: Pleasant female, well-nourished, gravid in no acute distress. Generally well-appearing.
Heart: Regular rate
Lungs: No strained respiratory effort
Abdomen: Soft, nondistended, gravid nontender uterus, mild tenderness right upper quadrant with deep palpation.
Extremities: No calf pain or significant edema
Category 1 tracing/reactive NST
Labs:
WBC 10.8
H/H: 12.7/36.4
Platelet 227
Creatinine 0.6
AST 23
ALT 14
Lipase 264
Abdominal ultrasound: Liver normal size with increased echogenicity. No focal hepatic lesion or intrahepatic biliary dilation. Gallbladder physiologic distended with fluid and shows 2 small mobile gallstones. Common duct is normal measuring 5 mm.
Pancreas not visualized due to overlying bowel gas. Spleen is normal in size, no focal abnormality. Mild left hydronephrosis. No free fluid in the abdomen. Proximal IVC and abdominal aorta are unremarkable. No secondary findings to suggest
acute cholecystitis. Hepatic fatty infiltration-stable.
[2025-04-10] MEDS: UNASYN IV ×3 (05:39→18:19)
[2025-04-10 06:06] LABS: Hematocrit 34.8 % (37.0-47.0); Hemoglobin 11.9 g/dL (12.0-16.0); Mean Corp Hgb Conc. 34.2 g/dL (33.0-37.0); Mean Corpuscular Volume 87.0 fL (81.0-99.0); Platelet Count 208 10^3/uL (130-400); Red Cell Dist. Width 12.7 % (11.5-14.5)
[2025-04-10 06:15] LABS: Blood Urea Nitrogen 2 mg/dl (7-17); Calcium 8.3 mg/dl (8.4-10.2); Carbon Dioxide 20 mmol/L (22-30); Chloride 110 mmol/L (98-107); Estimated Creatinine Clearance > 125 ml/min; Glucose 87 mg/dl (70-99); Potassium 4.3 mmol/L (3.5-5.1); Sodium 133 mmol/L (135-145); eGFR > 60.00
--- NOTE | 2025-04-10 07:09 | W.PN.GS2 ---
Addendum entered and electronically signed by Willie Veloz MD 04/10/25 12:05:
I saw and examined the patient independently.
The resident's documentation was reviewed and I agree with the note, assessment and plan except where noted below.
Comment: This is a 34-year-old female G1, P0 at 36 weeks who presents with postprandial right upper quadrant pain that seems to have resolved while here on antibiotics.
Her exam is currently benign overall her clinical picture is reassuring but we will get an MRI to ensure there is no evidence of cholecystitis. If this is the case we will plan for a short course of antibiotics (7 days) and planned delivery as per
her OB with close general surgery follow-up afterwards for cholecystectomy. If her MRI is positive then would likely pursue laparoscopic cholecystectomy.
MRI abdomen today.
Continue antibiotics x 7 days
N.p.o., IV fluids for now
All questions answered, patient agreeable to plan of care above. Surgery will follow.
Original Note:
Today's Communication / Plan
-
Plan reviewed with attending.
Assessment / Plan
-
34yoF 36 weeks PMH steatotic liver, IVF here for cholelithiasis with possible concern of cholecystitis. She has not been nauseas in over a day but continues to have low level pain and mildly elevated WBC on antibiotics.
Plan:
Continue antibiotics. Unasyn.
Diet:NPO for MRI
Pain control:tylenol PRN
MRCP without contrast to better visualize biliary etiology
Time Spent
Total Time Spent with Patient (in minutes): Plan reviewed with attending.
Subjective Data
-
Date of Service: April 10, 2025
This morning pt reports minimal pain. She describes mild, persistent achy pain in the RUQ rated 2/10 compared to when she came in with 10/10 pain. Denies nausea or vomiting since the ED.
Objective Data
-
Vital Signs
Temp Pulse Resp BP Pulse Ox
99.1 F 84 14 122/72 100
04/09/25 04:31 04/09/25 06:30 04/09/25 06:30 04/09/25 06:30 04/09/25 04:46
Lab Results
04/10/25 05:39
04/10/25 05:39
Calcium 8.3 mg/dl (8.4-10.2) L 04/10/25 05:39
Total Bilirubin 0.4 mg/dl (0.2-1.3) 04/09/25 02:38
AST 23 U/L (14-36) 04/09/25 02:38
ALT 14 U/L (0-35) 04/09/25 02:38
Alkaline Phosphatase 161 U/L (38-126) H 04/09/25 02:38
Total Protein 6.4 g/dl (6.3-8.2) 04/09/25 02:38
Albumin 3.6 g/dl (3.5-5.0) 04/09/25 02:38
Physical Exam
-
General: resting comfortably in bed, no acute distress
HEENT: anicteric
Abdomen: gravid abdomen, RUQ mild tenderness to palpation
Neuro: A and O x3
Patient has a marcus catheter: No
Patient has a central line: No
[2025-04-10 08:29] LABS: ALT (SGPT) 12 U/L (0-35); AST (SGOT) 19 U/L (14-36); Albumin 3.2 g/dl (3.5-5.0); Alkaline Phosphatase 164 U/L (38-126); Total Protein 5.9 g/dl (6.3-8.2)
[2025-04-10] MEDS: FLUSH (NSS) 2 FLUSH IV (08:55)
[2025-04-10] MEDS: REGLAN 10 MG IV (08:55)
[2025-04-10] MEDS: FLUSH (NSS) 1 FLUSH IV (12:16)
--- NOTE | 2025-04-10 12:34 | W.PN.OBG.DWH ---
Today's Communication / Plan
-
- diet and antibiotics per general surgery
- MRI of abdomen pending
- continue q8h NSTs
Assessment/Plan
-
34yo @36.3 with RUQ pain, gallstones
- General surgery re-evaluated patient this morning and ordered an MRI to further evaluate for cholecystitis. MRI pending. If there is evidence, she will likely need a cholecystectomy. If MRI is negative, she will need 7 days of antibiotics and
follow up outpatient
- Case discussed with M and do not recommend steroids if need to proceed with surgery. Would prefer that patient is managed expectantly and wait until after delivery for surgery. There is no need for early IOL and if patient is discharged, would
likely have IOL at 39wks and plan for outpatient follow up with surgery and cholecystectomy after delivery
- Diet per general surgery
- NST reactive and reassuring. Patient is scheduled for an NST/NADER tomorrow. If patient remains inpatient, will need NADER tomorrow. Continue NST q8h while inpatient
Subjective Data
-
Patient with no complaints. She reports her pain is almost gone and she just feels aching now. She had nausea this morning but she said she thinks it is related to not eating. She denies vomiting. Denies ctx, VB or LOF. +FM
Objective Data
-
Laboratory Results
04/10/25 05:39
04/10/25 05:39
Vital Signs
Temp Pulse Resp BP Pulse Ox
99.1 F 84 14 122/72 100
04/09/25 04:31 04/09/25 06:30 04/09/25 06:30 04/09/25 06:30 04/09/25 04:46
BP 95/57
General: well appearing
Abd: soft, nontender, no RUQ tenderness, gravid
Ext: nontender
NST @1000: 130 baseline/moderate variability/+accelerations/no decelerations
[place]: no ctx
--- NOTE | 2025-04-10 14:38 | W.PN.SURGUPD ---
Surgical Update
Surgical Update
Reviewed MRI imaging with patient; Distended gallbladder containing small cholelithiasis. Minor degree of gallbladder wall thickening but less than 3 mm in thickness. No MRCP evidence for bile duct dilatation or choledocholithiasis.
Continues without pain/tenderness on exam. No n/v. No strong indication for emergent surgery based on imaging/exam.
Plan: Advance to low fat diet
If tolerates diet without return of symptoms then ok for d/c from surgical standpoint. Would continue with 5 additional days of PO abx and plan for outpatient follow up after she delivers to plan laparoscopic cholecystectomy
--- NOTE | 2025-04-10 16:19 | CM ---
CM met with pt bedside
She is 36 weeks with her first child, baby girl
She resides with her spouse in a private home
Plans to delivery at [facility] few weeks
Already has a breast pump and has chosen [facility]
No plan surgical intervention at this time
Anticipate dc home today
--- NOTE | 2025-04-10 16:29 | W.PN.UPDATE ---
Update Note
Progress Note Update
MRI showed distended gallbladder containing small cholelithiasis. There minor degree of gallbladder wall thickening but less tahn 3mm. No MRCP evidence for bile duct dilatation or choledocholithiasis. Patient was advanced to a low fat diet per
general surgery and if she was feeling better to be discharged home with 5 additional days of PO abx. Patient was feeling fine after eating and she was sent for an NADER since she was to get one tomorrow. NADER 18. After she returned from the NADER she
started feeling epigastric and RUQ pain that radiated upwards. She said it did not radiate to her back like before. She rates it an 8/10 and she is pacing around the room because it feels better with movement. Pepcid and Tylenol ordered. Will
re-evaluate after. If patient is not feeling better, will notify general surgery. NST reactive and reassuring- there are areas where is drops out when patient is ambulating.
[2025-04-10] MEDS: PEPCID 40 MG PO (16:31)
[2025-04-10] MEDS: SENOKOT-S 1 TABLET PO (16:31)
[2025-04-10] MEDS: TYLENOL 1000 MG PO (16:55)
[2025-04-10] MEDS: LR 1000 IV (17:44)
--- NOTE | 2025-04-10 20:03 | W.PN.UPDATE ---
Update Note
Progress Note Update
Pain resolved shortly after Tylenol and Pepcid. She was able to tolerate dinner and has no pain. Stable for DC home. Flagyl and Keflex Rx sent to pharmacy for patient to take for 5 additional days. Patient has follow up scheduled in the office on
Thursday which she was instructed to keep. She was also instructed to follow up with general surgery. Discussed a low fat diet with patient. Discharge instructions and return precautions reviewed. FHT category 1. There was a 10 minute period of
tachycardia that resolved with fluid bolus and repositioning.
== END 2025-04-10 20:20 | disposition home or self-care (01) | DRG 832 ==
LOC: LDRP 05:56
PROVIDERS: Nurse Practitioner Gerontology; ADMITTING PHYSICIAN Obstetrics & Gynecology; EMERGENCY PHYSICIAN Student in an Organized Health Care Education/Training Program; FAMILY PHYSICIAN Family Medicine; OTHER PHYSICIAN Internal Medicine Gastroenterology; OTHER PHYSICIAN Surgery
DX: O99.613 Diseases of the digestive system complicating pregnancy, third trimester (principal); K80.10 Calculus of gallbladder with chronic cholecystitis without obstruction; Z3A.36 36 weeks gestation of pregnancy; O99.283 Endocrine, nutritional and metabolic diseases complicating pregnancy, third trimester; E28.2 Polycystic ovarian syndrome; O09.513 Supervision of elderly primigravida, third trimester
CPT/HCPCS: 74181; 76700; 76815; 80053; 82248; 83690; 84484; 85025; 85027; 87070; 93005; 96374; 96375; 99285; G0378

== ENCOUNTER → 2025-04-18 15:54 | Outpatient (REF) | payer BC, SELFPAY | LOC: PNTC 15:54 | PROVIDERS: ATTENDING PHYSICIAN Obstetrics & Gynecology | DX: O09.513 Supervision of elderly primigravida, third trimester (principal); O09.813 Supervision of pregnancy resulting from assisted reproductive technology, third trimester; O26.613 Liver and biliary tract disorders in pregnancy, third trimester; O99.213 Obesity complicating pregnancy, third trimester | CPT/HCPCS: 59025; 76815 ==

== ENCOUNTER → 2025-04-25 15:48 | Outpatient (REF) | payer BC, SELFPAY | LOC: PNTC 15:48 | PROVIDERS: ATTENDING PHYSICIAN Obstetrics & Gynecology | DX: O09.513 Supervision of elderly primigravida, third trimester (principal); O09.813 Supervision of pregnancy resulting from assisted reproductive technology, third trimester; O26.613 Liver and biliary tract disorders in pregnancy, third trimester; O99.213 Obesity complicating pregnancy, third trimester | CPT/HCPCS: 59025; 76816 ==

== ENCOUNTER 2025-05-01 20:24 | Inpatient (IN) | payer BC, SELFPAY ==
[2025-05-01 20:54] VITALS: BP 107/76; BMI 37.9
[2025-05-01] MEDS: CYTOTEC 25 MICROGRAM VAG (21:20)
[2025-05-01 21:22] LABS: Hematocrit 36.2 % (37.0-47.0); Hemoglobin 12.6 g/dL (12.0-16.0); Mean Corp Hgb Conc. 34.8 g/dL (33.0-37.0); Mean Corpuscular Volume 86.6 fL (81.0-99.0); Nucleated Red Blood Cells % 0 %; Platelet Count 171 10^3/uL (130-400); Red Cell Dist. Width 13.2 % (11.5-14.5)
[2025-05-01 22:45] LABS: ALT (SGPT) 54 U/L (0-35); AST (SGOT) 91 U/L (14-36); Albumin 3.4 g/dl (3.5-5.0); Alkaline Phosphatase 235 U/L (38-126); Blood Urea Nitrogen 7 mg/dl (7-17); Calcium 9.3 mg/dl (8.4-10.2); Carbon Dioxide 23 mmol/L (22-30); Chloride 108 mmol/L (98-107); Estimated Creatinine Clearance 97 ml/min; Glucose 86 mg/dl (70-99); Potassium 4.9 mmol/L (3.5-5.1); Sodium 134 mmol/L (135-145); Total Protein 6.0 g/dl (6.3-8.2); eGFR > 60.00
[2025-05-02] MEDS: CYTOTEC 50 MICROGRAM PO (01:19)
[2025-05-02] MEDS: STADOL 1 MG IV ×3 (03:50→06:35)
[2025-05-02] MEDS: LR 1000 IV ×2 (05:18→10:25)
[2025-05-02] MEDS: CYTOTEC PO (06:30)
[2025-05-02] MEDS: FENTANYL/BUPIVACAINE 100 EPIDURAL ×2 (07:24→15:44)
[2025-05-02] MEDS: SUBLIMAZE 100 MCG EPIDURAL (07:24)
[2025-05-02] MEDS: PITOCIN 30 UNITS/NSS 500 ML IV ×2 (11:34→17:56)
[2025-05-02] MEDS: MOTRIN 600 MG PO (21:13)
[2025-05-02] MEDS: TYLENOL 650 MG PO (21:14)
[2025-05-03] MEDS: MOTRIN 600 MG PO ×3 (03:36→14:38)
[2025-05-03] MEDS: TYLENOL 650 MG PO ×2 (03:37→19:52)
[2025-05-03 04:08] LABS: Hematocrit 32.1 % (37.0-47.0); Hemoglobin 11.2 g/dL (12.0-16.0)
[2025-05-03 04:34] LABS: ALT (SGPT) 37 U/L (0-35); AST (SGOT) 49 U/L (14-36)
[2025-05-03] MEDS: PRENATAL PLUS 1 TABLET PO (09:02)
[2025-05-03] MEDS: COLACE 100 MG PO ×2 (09:02→19:53)
[2025-05-03] MEDS: COLACE PO (19:52)
[2025-05-03] MEDS: PRENATAL PLUS PO (21:19)
[2025-05-04] MEDS: TYLENOL 650 MG PO (05:52)
[2025-05-04] MEDS: PRENATAL PLUS 1 TABLET PO (07:50)
[2025-05-04] MEDS: MOTRIN 600 MG PO (07:50)
[2025-05-04] MEDS: COLACE 100 MG PO (07:51)
[2025-05-05 11:13] LABS: Syphilis/T. pallidum Ab Reflex Negative (Negative)
== END 2025-05-04 12:28 | disposition home or self-care (01) | DRG 807 ==
LOC: LDRP 20:24
PROVIDERS: Obstetrics & Gynecology; ADMITTING PHYSICIAN Obstetrics & Gynecology
PROC: 3E0P7VZ Introduction of Hormone into Female Reproductive, Via Natural or Artificial Opening (ICD-10-PCS; 2025-05-01)
PROC: 10E0XZZ Delivery of Products of Conception, External Approach (ICD-10-PCS; 2025-05-02)
PROC: 0HQ9XZZ Repair Perineum Skin, External Approach (ICD-10-PCS; 2025-05-02)
DX: O70.0 First degree perineal laceration during delivery (principal); Z37.0 Single live birth; Z3A.39 39 weeks gestation of pregnancy
CPT/HCPCS: 80053; 84450; 84460; 85014; 85018; 85025; 86780; 86850; 86900; 86901; 88307

== ENCOUNTER 2025-07-03 06:43 | Day surgery (SDC) | payer BC, SELFPAY ==
[2025-07-03] VITALS (7 sets, daily range): BP systolic 104–119; BP diastolic 74–81; BMI 34.6
[2025-07-03] MEDS: NORMOSOL-R/PLASMALYTE-A 1000 IV (13:08)
[2025-07-03] MEDS: IC GREEN 2.5 MG IV (13:09)
[2025-07-03] MEDS: HEPARIN 5000 UNITS SC (13:50)
--- NOTE | 2025-07-03 15:25 | OR.RPT ---
Operative Report
Operative Report
Primary Surgeon: Alessandro
Assisting: Kimberly DUMONT
Pre-op Diagnosis: Biliary colic
Post-op Diagnosis: Same
Procedure Performed: Robot assisted laparoscopic cholecystectomy with intraoperative near infared imaging of major extrahepatic bile ducts and intraoperative cholangiogram
Anesthesia Type: GETA
Specimen / Cultures: Gallbladder
Estimated Blood Loss: 5cc
Complications: None immediate
Operative Findings: Floppy gallbladder with dense omental adhesions, bile spillage without stones; cholangiogram with brisk flow into duodenum and no filling defects in biliary tree, proximal duct view limited likely due to lack of pressure at the
ampulla
DOS: 07/03/25
Indications: This 35F developed right upper quadrant/epigastric pain and on workup was found to have cholelithiasis with elevated liver enzymes. Laparoscopic cholecystectomy with cholangiogram and robotic assist was elected.
Description of procedure: The patient was placed on the operating table in the supine position. General anesthesia was induced. A time-out was completed verifying correct patient, procedure,
site, positioning, and special equipment prior to beginning this procedure. An orogastric tube was placed. The abdomen was prepped and draped in the usual sterile fashion. A stab incision was made in left upper quadrant and the Veress needle was
inserted. Proper position was confirmed by aspiration and saline meniscus test. The abdomen was insufflated with carbon dioxide to a pressure of 12 mmHg. The patient tolerated insufflation well.
An 8mm optical trocar was then inserted in the left upper quadrant. The laparoscope was inserted and the abdomen inspected. No injuries from initial trocar placement or Veress needle insertion were noted. Additional 8mm trocars were then inserted in
the following locations: above the umbilicus, right mid clavicular line at the level of the umbilicus and 6cm lateral to this on the right. The abdomen was inspected and no abnormalities were found. The table was placed in the reverse Trendelenburg
position with the right side up. The dome of the gallbladder was grasped with an atraumatic grasper and retracted over the dome of the liver. The infundibulum was also grasped with an atraumatic grasper and retracted toward the right lower
quadrant. Dense omental adhesions to the fundus and infundibulum were taken down. This maneuver exposed Calot�s triangle. The cystic duct and cystic artery were dissected out until the only two structures entering the gallbladder were these two
structures. ICG was used to visualize the cystic duct and common duct and anatomy was confirmed. The common duct was protected. A david was made in the cystic duct.
A cholangiogram catheter that had been threaded through the abdominal wall earlier was passed into the cystic duct and secured into place with a 2-0 silk tie. A cholangiogram was obtained that showed brisk flow of contrast into the duodenum and
opacification of the common duct without filling defects. The view of the proximal ducts was limited likely due to the lack of distal pressure. The catheter was removed.
The cystic artery was controlled with bipolar and divided. The cystic duct was doubly clipped and divided. The gallbladder was dissected free from the liver bed. During this step the gallbladder wall broke down in one location and bile spilled out.
No stones spilled out.
Hemostasis was assured and the gallbladder and contained stones were removed using an endoscopic retrieval bag placed through the umbilical port. The gallbladder was passed off the table as a specimen. The gallbladder fossa was irrigated with
copious sterile saline and hemostasis was again assured. There was no evidence of bleeding from the gallbladder fossa or cystic artery or leakage of the bile from the cystic duct stump. The umbilical trocar site was closed at the fascial level
laparoscopically with 2-0 PDS. Secondary trocars were removed under direct vision and noted to be hemostatic. The laparoscope was withdrawn and the umbilical trocar removed. The abdomen was allowed to collapse. The skin was closed with subcuticular
sutures of 4-0 monocryl and topical skin adhesive. The orogastric tube was removed.
The patient tolerated the procedure well and was taken to the postanesthesia care unit in stable condition.
[2025-07-03] MEDS: DILAUDID 0.25 MG IV (16:07)
[2025-07-03] MEDS: ZOFRAN 4 MG IV (17:47)
== END 2025-07-03 18:05 | disposition home or self-care (01) ==
LOC: SDS 06:43
PROVIDERS: ATTENDING PHYSICIAN Surgery
DX: K81.1 Chronic cholecystitis (principal)
CPT/HCPCS: 47563; 74300; 76000; 88304; A4300